=== PATIENT | male | born 1935 | race Caucasian/White ===

== ENCOUNTER 2019-05-10 13:30 | Observation (INO) | payer MEDICARE, BC ==
--- NOTE | 2019-05-10 15:11 | EDM.PDOC ---
ED HPI GENERAL MEDICAL PROBLEM - General Chief Complaint: Cardiovascular Problem Stated Complaint: LIGHTHEADED, A-FIB Time Seen by Provider: 05/10/19 13:40 Source of Information: Reports: Patient History Limitations: Reports: No Limitations - History of Present Illness INITIAL COMMENTS - FREE TEXT/NARRATIVE: Patient presented to the ED because of a near syncopal episode. He was doing some work at home when all of a sudden he felt weak, dizzy and almost passed out. He denies having any chest pain,palpitations, N/V or dyspnea. - Related Data Allergies Allergy/AdvReac Type Severity Reaction Status Date / Time No Known Allergies Allergy Verified 05/10/19 14:17 Home Meds: Home Meds Ferrous Sulfate 324 mg PO DAILY 05/10/19 [History] Losartan/Hydrochlorothiazide [Losartan-HCTZ 50-12.5 MG] 0.5 tab PO BEDTIME 05/10 [History] Metoprolol Succinate 25 mg PO DAILY 05/10/19 [History] Simvastatin 40 mg PO BEDTIME 05/10/19 [History] Past Medical History HEENT History: Reports: Impaired Vision Cardiovascular History: Reports: Bypass, High Cholesterol, Hypertension, Other ( See Below) Other Cardiovascular History: new onset AFIB this admission 05-10-19. Hx of Triple bypass. Prolific family hx of cardiac related illness/deaths. - Past Surgical History HEENT Surgical History: Reports: KWAME GI Surgical History: Reports: Other (See Below) Other GI Surgeries/Procedures: hernia repair Social & Family History - Family History Cardiac: Reports: [place] - Tobacco Use Smoking Status *Q: Never Smoker - Caffeine Use Caffeine Use: Reports: Coffee - Recreational Drug Use Recreational Drug Use: No ED ROS GENERAL - Review of Systems Review Of Systems: See Below Constitutional: Reports: No Symptoms HEENT: Reports: No Symptoms Respiratory: Reports: No Symptoms Cardiovascular: Reports: Lightheadedness. Denies: Chest Pain Endocrine: Reports: No Symptoms GI/Abdominal: Reports: No Symptoms : Reports: No Symptoms Musculoskeletal: Reports: No Symptoms Skin: Reports: No Symptoms Neurological: Reports: No Symptoms Psychiatric: Reports: No Symptoms ED EXAM, GENERAL - Physical Exam Exam: See Below Exam Limited By: No Limitations General Appearance: Alert, WD/WN, No Apparent Distress Eye Exam: Bilateral Eye: PERRL Nose: Normal Inspection, Normal Mucosa, No Blood Throat/Mouth: Normal Inspection, Normal Lips, Normal Teeth Head: Atraumatic, Normocephalic Neck: Normal Inspection, Supple, Non-Tender, Full Range of Motion Respiratory/Chest: No Respiratory Distress, Lungs Clear, Normal Breath Sounds Cardiovascular: Normal Peripheral Pulses, Regular Rate, Rhythm, No Edema, No Gallop, No JVD, No Murmur GI/Abdominal: Normal Bowel Sounds, Soft, Non-Tender, No Organomegaly, No Distention (Male) Exam: No Hernia, Normal Inspection, Normal Prostate Rectal (Males) Exam: Normal Exam Back Exam: Normal Inspection, Full Range of Motion Extremities: Normal Inspection, Normal Range of Motion Neurological: Alert, Oriented, CN II-XII Intact, Normal Cognition, Normal Gait Psychiatric: Normal Affect Course - Vital Signs Text/Narrative:: Labs and EKG reviewed with patient and verbalized understanding EKG-AFIB with normal VR CREA-2.0 NS @125 ml/hr Last Recorded V/S: Last Vital Signs Temp 37.1 C 05/10/19 13:30 Pulse 75 05/10/19 13:30 Resp 14 05/10/19 13:30 BP 119/69 05/10/19 13:30 Pulse Ox 100 05/10/19 13:30 - Orders/Labs/Meds Orders: Active Orders 24 hr Category Date Time Status Sodium Chloride 0.9% [Normal Saline] 1,000 ml Med 05/10/19 15:00 Active IV ASDIRECTED Medication Orders Sodium Chloride (Normal Saline) 1,000 mls @ 125 mls/hr IV ASDIRECTED MANAS Labs: Laboratory Tests 05/10/19 05/10/19 05/10/19 Range/Units 14:05 14:05 14:05 WBC 7.2 (4.5-12.0) X10-3/uL RBC 4.50 (4.30-5.75) x10(6)uL Hgb 12.7 L (13.5-17.8) g/dL Hct 38.9 (30.0-51.3) % MCV 86.6 (80-96) fL MCH 28.3 (27.7-33.6) pg MCHC 32.7 (32.2-35.4) g/dL RDW 13.9 (11.5-15.5) % Plt Count 300 (125-369) X10(3)uL MPV 7.6 (7.4-10.4) fL Neutrophils % (Manual) 76 (46-82) % Lymphocytes % (Manual) 14 (13-37) % Monocytes % (Manual) 7 (4-12) % Eosinophils % (Manual) 3 (0-5) % PT (8.7-11.1) INR (0.89-1.13) APTT (24.4-33.2) SECONDS Sodium 140 (135-145) mmol/L Potassium 4.0 (3.5-5.3) mmol/L Chloride 103 (100-110) mmol/L Carbon Dioxide 24 (21-32) mmol/L BUN 38 H (7-18) mg/dL Creatinine 2.0 H* (0.70-1.30) mg/dL Est Cr Clr Drug Dosing 29.91 mL/min Estimated GFR (MDRD) 32 L (>60) BUN/Creatinine Ratio 19.0 (9-20) Glucose 116 (80-116) mg/dL Calcium 9.7 (8.6-10.2) mg/dL Total Bilirubin 0.7 (0.1-1.3) mg/dL AST 20 (5-25) IU/L ALT 22 (12-36) U/L Alkaline Phosphatase 74 (56-112) IU/L Troponin I < 0.017 L (<0.017-0.056) ng/mL Total Protein 7.4 (6.0-8.0) g/dL Albumin 3.9 (3.2-4.6) g/dL Globulin 3.5 g/dL Albumin/Globulin Ratio 1.1 05/10/19 Range/Units 14:05 WBC (4.5-12.0) X10-3/uL RBC (4.30-5.75) x10(6)uL Hgb (13.5-17.8) g/dL Hct (30.0-51.3) % MCV (80-96) fL MCH (27.7-33.6) pg MCHC (32.2-35.4) g/dL RDW (11.5-15.5) % Plt Count (125-369) X10(3)uL MPV (7.4-10.4) fL Neutrophils % (Manual) (46-82) % Lymphocytes % (Manual) (13-37) % Monocytes % (Manual) (4-12) % Eosinophils % (Manual) (0-5) % PT 10.1 (8.7-11.1) INR 1.04 (0.89-1.13) APTT 23.9 L (24.4-33.2) SECONDS Sodium (135-145) mmol/L Potassium (3.5-5.3) mmol/L Chloride (100-110) mmol/L Carbon Dioxide (21-32) mmol/L BUN (7-18) mg/dL Creatinine (0.70-1.30) mg/dL Est Cr Clr Drug Dosing mL/min Estimated GFR (MDRD) (>60) BUN/Creatinine Ratio (9-20) Glucose (80-116) mg/dL Calcium (8.6-10.2) mg/dL Total Bilirubin (0.1-1.3) mg/dL AST (5-25) IU/L ALT (12-36) U/L Alkaline Phosphatase (56-112) IU/L Troponin I (<0.017-0.056) ng/mL Total Protein (6.0-8.0) g/dL Albumin (3.2-4.6) g/dL Globulin g/dL Albumin/Globulin Ratio Meds: Medications Generic Name Dose Route Start Last Admin Trade Name Freq PRN Reason Stop Dose Admin Sodium Chloride 1,000 mls @ 125 mls/hr 05/10/19 15:00 Normal Saline IV ASDIRECTED MANAS Departure - Departure Time of Disposition: 15:10 Disposition: Refer to Observation Condition: Good Clinical Impression: Near syncope, Atrial fibrillation, WILFREDO (acute kidney injury) Referrals: Blas Kwan MD [Primary Care Provider] - Forms: ED Department Discharge Sepsis Event Note - Evaluation Sepsis Screening Result: No Definite Risk - Focused Exam Vital Signs: Vital Signs Temp Pulse Resp BP Pulse Ox 05/10/19 13:30 37.1 C 75 14 119/69 100 Date Exam was Performed: 05/10/19 Time Exam was Performed: : - My Orders Last 24 Hours: My Active Orders 05/10/19 15:00 Sodium Chloride 0.9% [Normal Saline] 1,000 ml IV ASDIRECTED - Assessment/Plan Last 24 Hours: My Active Orders 12/27/19 15:00 Sodium Chloride 0.9% [Normal Saline] 1,000 ml IV ASDIRECTED
[2019-05-10] MEDS ORDERED: Ondansetron 4 MG/2 ML SDV IV PRN (15:33)
[2019-05-10] MEDS ORDERED: Acetaminophen 325 MG Tab PO PRN (15:33)
[2019-05-10] MEDS ORDERED: Docusate Sodium 100 MG Cap PO PRN (15:33)
[2019-05-10] MEDS ORDERED: Zolpidem 5 MG Tab PO PRN (15:33)
[2019-05-10] MEDS: Sodium Chloride 0.9% 1,000 ML IV SCH (15:46)
[2019-05-10] MEDS ORDERED: Enoxaparin 30 MG/0.3 ML Syringe SUBCUT SCH (17:00)
[2019-05-10] MEDS ORDERED: Warfarin 5 MG Tab PO SCH (18:15)
[2019-05-10] MEDS ORDERED: Simvastatin 40 MG Tab *PTOM PO SCH (21:00)
[2019-05-11] MEDS: Sodium Chloride 0.9% 1,000 ML IV SCH ×2 (00:34→07:36)
[2019-05-11] MEDS ORDERED: METOPROLOL SUCCINATE 25 MG PO SCH (09:00)
[2019-05-11] MEDS ORDERED: Ferrous Sulfate 325 MG Tab *PTOM PO SCH (09:00)
--- NOTE | 2019-05-11 15:05 | HP ---
ADMISSION DATE: 05/10/2019 REASON FOR VISIT: Acute onset of feeling poorly, lightheaded and near-syncope. 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 Was seen and evaluated at [facility] ER. He had been doing some busy work at his apartment, fixing a door. Had gone down to a local hardware store to get special tool. While there, he had a sudden onset of weakness, dizziness, lightheadedness, and near-syncope. He was brought to [facility] ER. While in the ER, laboratory studies were performed, vital signs were stable, pulse was not rapid. CBC was unremarkable, electrolytes satisfactory, though creatinine of 2.0, INR 2.0, GFR of 32, troponin of less than 0.017, and was found to be in atrial fibrillation, rate controlled. Onset uncertain. Because of concerns of well-being, admission to hospital is indicated. IV fluids and addressing the issue of Coumadin. CURRENT MEDICATIONS: Present daily medications include, 1. Losartan/hydrochlorothiazide 50/12.5, one-half pill daily for blood pressure. 2. Metoprolol-XL 25 mg one p.o. daily for heart rate control and blood pressure. 3. Zocor 40 mg one p.o. daily for hyperlipidemia. 4. Flomax 0.4 mg one p.o. daily for BPH. 5. 325 mg of baby aspirin. 6. Krill oil 1000 mg daily for nutrition. 7. Multivitamin, senior vitamin. ALLERGIES: None. PAST SURGICAL HISTORY: Significant for remote herniorrhaphy, previous LASIK eye surgery, and coronary artery bypass surgery x4. PAST MEDICAL HISTORY: Medical problems include hyperlipidemia, coronary artery disease, essential hypertension, and hyperlipidemia. 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 Previously and , children and grandchildren. Former smoker, quit 1960. No chewing tobacco. No vaping. No illicit drug use. No alcohol use. FAMILY HISTORY: Noncontributory. REVIEW OF SYSTEMS: CONSTITUTIONAL: Please see HPI. EYES: Sees well. EARS: Hears well. OROPHARYNX: Intact dentition. GI: Bowels have been fine. No blood in stools. : Voiding pattern, no blood in urine. SKIN: No open sores or lesions. ENDOCRINE: No excessive thirst or urination. ALLERGIES: None. ORTHOPEDIC: Generalized joint complaints. PHYSICAL EXAMINATION: VITAL SIGNS: 36.9, 88, 114/74, 14, and 97% O2. GENERAL: Elderly gentleman, cooperative, conversant, and appears of stated age. HEENT: Funduscopic benign. Conjunctivae clear. Bright tympanic membranes. Clear nasal discharge. Mouth and oropharynx clear. Tongue midline. Good gag reflex. NECK: Benign. CHEST: On auscultation, clear in all lung morris. HEART: On auscultation, no ectopy or murmur. ABDOMEN: Benign. No hepatosplenomegaly. Sternotomy scar well healed. /RECTAL: Declined. EXTREMITIES: Well perfused. NEUROMUSCULAR: Intact. LABORATORY STUDIES: As above. IMPRESSION: New-onset atrial fibrillation, uncertain, not suspicious that was today. SECONDARY DIAGNOSES: Coronary artery disease, hypertension, hyperlipidemia, and stage 3 chronic renal failure. PLAN: IV fluids, hydration, medications and care. Beginning of Coumadin timely and appropriate. /[id number] JOHN/JAYCOB
--- NOTE | 2019-05-13 09:59 | DISCH ---
DISCHARGE DATE: 05/11/2019 DIAGNOSIS: New diagnosis of symptomatic atrial fibrillation. SECONDARY DIAGNOSES: 1. Coronary artery disease, coronary artery bypass surgery. 2. Hypertension. 3. Hyperlipidemia. 4. Stage 3 chronic renal failure. 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 Exam was satisfactory, he was found to be in atrial fibrillation, rate controlled. Onset is uncertain. Not likely today. Examination was performed and satisfactory, no complicating issues. HOSPITAL COURSE: The patient was given IV fluids, spoke to have implications and expectations and intervention of Coumadin and need for prevention of embolic CVA. Was given 5 mg of Coumadin on the evening of 05/10/19. He had an overnight stay without conflict. On the morning of 05/11/19, INR had risen to 2.4. Dramatic increase with 5 mg of Coumadin. No complicating issues. Vital signs have been stable. Heart rate was in the 50s at rest, 70s with wakefulness, up to 120s. Metoprolol 25 mg on board in the interim. Due to the rapid rise in INR ProTime, we will divert to 1 mg of Coumadin in the mean time. OBJECTIVE: VITAL SIGNS: Stable. HEENT: Unremarkable. NECK: Supple. Thyroid small. CHEST: Clear in all lung morris. HEART: Irregularly irregular at 74. ABDOMEN: Benign. PLAN: Discharge home. Coumadin 2 mg tablet only available at the pharmacy, we will do half of the 2 mg to 1 mg daily. Mandatory recheck on 05/13/2019 at the [facility]. Clearly latter was defined and written as an opportunity. Laboratory studies and findings will be forwarded accordingly. ADDENDUM: A 30-minute visit with planning and discharge. /[id number] JOHN/JAYCOB
== END 2019-05-11 10:40 | disposition home or self-care (01) ==
LOC: FB.ED 13:30 → FB.MS 15:33
PROVIDERS: ADMIT Family Medicine; ATTEND Family Medicine
DX: I48.91 Unspecified atrial fibrillation (principal); I25.10 Atherosclerotic heart disease of native coronary artery without angina pectoris; I10 Essential (primary) hypertension; E78.5 Hyperlipidemia, unspecified; I12.9 Hypertensive chronic kidney disease with stage 1 through stage 4 chronic kidney disease, or unspecified chronic kidney disease; N18.3 Chronic kidney disease, stage 3 (moderate); Z95.1 Presence of aortocoronary bypass graft; Z79.899 Other long term (current) drug therapy; Z87.891 Personal history of nicotine dependence
CPT/HCPCS: 36415; 80048; 80053; 84484; 85025; 85610; 85730; 93005; 93010; 99284; A9270; J1650; J7030

== ENCOUNTER 2019-12-11 15:25 | Emergency (ER) | payer MEDICARE, BC ==
[2019-12-11] MEDS ORDERED: Lidocaine 2% Viscous Solution 15 ML Cup TOP STA (16:04)
--- NOTE | 2019-12-11 16:45 | EDM.PDOC ---
ED HPI GENERAL MEDICAL PROBLEM - General Chief Complaint: Laceration Stated Complaint: CUT RIGHT HAND Time Seen by Provider: 12/11/19 15:40 Source of Information: Reports: Patient History Limitations: Reports: No Limitations - History of Present Illness INITIAL COMMENTS - FREE TEXT/NARRATIVE: Patient presented to the ED because of a right hand injury. He tripped and fell and landed his right hand on the concrete. He sustained an irregular 8 cm laceration over the palm of his right hand. He is able to extend his wrist and fingers without any difficulty. He denies hitting his head or neck and there is no headache N/V. - Related Data Allergies Allergy/AdvReac Type Severity Reaction Status Date / Time No Known Allergies Allergy Verified 12/11/19 16:02 Home Meds: Home Meds Aspirin [Halfprin] 81 mg PO DAILY 05/10/19 [History] Ferrous Sulfate 324 mg PO DAILY 05/10/19 [History] Losartan/Hydrochlorothiazide [Losartan-HCTZ 50-12.5 MG] 0.5 tab PO BEDTIME 05/10/19 [History] Metoprolol Succinate 25 mg PO DAILY 05/10/19 [History] Simvastatin 40 mg PO BEDTIME 05/10/19 [History] Tamsulosin [Flomax] 0.4 mg PO BEDTIME 05/10/19 [History] Indomethacin [Indocin] 50 mg PO BID 12/11/19 [History] Krill/Om-3/DHA/EPA/Phospho/Ast [Krill Oil 1,000 mg Softgel] 1 each PO DAILY 12/11/19 [History] Multivitamin with Minerals [Multiple Vitamin] 1 tab PO DAILY 12/11/19 [History] Warfarin Sodium [Jantoven] 2 mg PO DAILY 12/11/19 [History] cephALEXin [Keflex] 500 mg PO Q8H #30 cap 12/11/19 [Rx] Past Medical History HEENT History: Reports: Impaired Vision Cardiovascular History: Reports: Bypass, High Cholesterol, Hypertension, Other (See Below) Other Cardiovascular History: new onset AFIB this admission 05-10-19. Hx of Triple bypass. Prolific family hx of cardiac related illness/deaths. Respiratory History: Reports: None Gastrointestinal History: Reports: None Genitourinary History: Reports: None Musculoskeletal History: Reports: None Neurological History: Reports: None Psychiatric History: Reports: None Endocrine/Metabolic History: Reports: None Hematologic History: Reports: None Immunologic History: Reports: None Oncologic (Cancer) History: Reports: None Dermatologic History: Reports: None - Infectious Disease History Infectious Disease History: Reports: None - Past Surgical History Head Surgeries/Procedures: Reports: None HEENT Surgical History: Reports: LASIK Cardiovascular Surgical History: Reports: Coronary Artery Bypass GI Surgical History: Reports: Hernia, Inguinal, Other (See Below) Other GI Surgeries/Procedures: hernia repair Endocrine Surgical History: Reports: None Social & Family History - Family History Family Medical History: Noncontributory Cardiac: Reports: [place] - Tobacco Use Smoking Status *Q: Never Smoker Second Hand Smoke Exposure: No - Caffeine Use Caffeine Use: Reports: None - Recreational Drug Use Recreational Drug Use: No ED ROS GENERAL - Review of Systems Review Of Systems: See Below Constitutional: Reports: No Symptoms HEENT: Reports: No Symptoms Respiratory: Reports: No Symptoms Cardiovascular: Reports: No Symptoms, Palpitations GI/Abdominal: Reports: No Symptoms : Reports: No Symptoms Musculoskeletal: Reports: No Symptoms Skin: Reports: Wound ED EXAM, SKIN/RASH Exam: See Below Exam Limited By: No Limitations General Appearance: Alert, No Apparent Distress Eye Exam: Bilateral Eye: PERRL Ears: Normal External Exam, Normal Canal Nose: Normal Inspection, Normal Mucosa Throat/Mouth: Normal Inspection, Normal Lips Head: Atraumatic, Normocephalic Neck: Normal Inspection, Supple, Non-Tender Respiratory/Chest: No Respiratory Distress, Lungs Clear, Normal Breath Sounds Cardiovascular: Normal Peripheral Pulses, Regular Rate, Rhythm, No Edema, No JVD, No Murmur GI/Abdominal: Normal Bowel Sounds, Soft, Non-Tender, No Organomegaly Back Exam: Normal Inspection, Full Range of Motion Extremities: Normal Inspection, Normal Range of Motion Neurological: Alert, Oriented, CN II-XII Intact Psychiatric: Normal Affect, Normal Mood Skin: Warm, Dry, Intact Location, Skin: Upper Extremity, Right ED SKIN PROCEDURES - Laceration/Wound Repair Right Hand Appearance: Superficial, Clean Distal NVT: Neuro & Vascular Intact Anesthetic Type: Local Local Anesthesia - Lidocaine (Xylocaine): 1% Plain Local Anesthetic Volume: 4cc Skin Prep: Chlorhexidine (Hibiciens), Saline Exploration/Debridement/Repair: Wound Explored Closed with: Sutures Lac/Wound length In cm: 8 Suture Size: 3-0 Suture Type: Silk Course - Vital Signs Text/Narrative:: see procedure Xray Rt hand-pending UTD with immunization Last Recorded V/S: Last Vital Signs Temp 36.8 C 12/11/19 15:35 Pulse 64 12/11/19 15:35 Resp 16 12/11/19 15:35 BP 150/74 H 12/11/19 15:35 Pulse Ox 100 12/11/19 15:35 - Orders/Labs/Meds Orders: Active Orders 24 hr Category Date Time Status Hand Comp Min 3V Rt [CR] Stat Exams 12/11/19 16:04 Taken Meds: Medications Discontinued Medications Generic Name Dose Route Start Last Admin Trade Name Pankaj PRN Reason Stop Dose Admin Lidocaine HCl 15 ml 12/11/19 16:04 12/11/19 16:12 Xylocaine 2% Viscous TOP 12/11/19 16:05 15 ml NOW STA Administration Departure - Departure Time of Disposition: 17:40 Disposition: Home, Self-Care 01 Condition: Good Clinical Impression: Laceration - Discharge Information Prescriptions: cephALEXin [Keflex] 500 mg PO Q8H #30 cap Instructions: Laceration Care, Adult Referrals: Blas Kwan MD [Primary Care Provider] - Forms: ED Department Discharge Additional Instructions: Please read discharge instructions on lacerationRemoval of suture in 10 days Keflex 500 mg 3 times daily for 10 days Take tylenol 1000 mg every 8 hours as needed for pain Sepsis Event Note (ED) - Evaluation Sepsis Screening Result: No Definite Risk - Focused Exam Vital Signs: Vital Signs Temp Pulse Resp BP Pulse Ox 12/11/19 15:35 36.8 C 64 16 150/74 H 100 - My Orders Last 24 Hours: My Active Orders 12/11/19 16:04 Hand Comp Min 3V Rt [CR] Stat - Assessment/Plan Last 24 Hours: My Active Orders 12/11/19 16:04 Hand Comp Min 3V Rt [CR] Stat
--- NOTE | 2019-12-11 18:09 | CR ---
INDICATION: Fell with right hand injury, laceration palm of hand in 5th metatarsal area. RIGHT HAND: Three views of the right hand were obtained 12/11/19 - no comparison. An acute fracture or dislocation was not identified. Moderately severe osteoarthritic changes were noted at the 1st metacarpocarpal joint most likely due to posttraumatic osteoarthritis with some deformity of the 1st metacarpal noted. Mild degenerative hypertrophic changes are noted at the interphalangeal joints distally at the 2nd through 5th fingers. Clips are noted at the distal radius compatible with previous surgery. IMPRESSION: 1. No acute fracture or dislocation. 2. 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 MTDD
== END 2019-12-11 17:30 | disposition home or self-care (01) ==
LOC: FB.ED 15:25
DX: S61.411A Laceration without foreign body of right hand, initial encounter (principal); I48.91 Unspecified atrial fibrillation; Z79.01 Long term (current) use of anticoagulants; Z79.82 Long term (current) use of aspirin; Z79.899 Other long term (current) drug therapy; W01.0XXA Fall on same level from slipping, tripping and stumbling without subsequent striking against object, initial encounter
CPT/HCPCS: 12004; 73130-RT; 99283-25; A9270-GY; J2001

== ENCOUNTER 2023-05-01 15:10 | Emergency (ER) | payer MEDICARE, BC ==
[2023-05-01] MEDS ORDERED: Ondansetron 4 MG/2 ML SDV IVPUSH ONE (15:42)
[2023-05-01] MEDS ORDERED: Sodium Chloride 0.9% 10 ML Syringe FLUSH PRN (15:44)
[2023-05-01] MEDS ORDERED: Sodium Chloride 0.9% 1,000 ML IV SCH (15:45)
[2023-05-01] MEDS ORDERED: Atropine/Diphenoxylate 0.025-2.5 MG Tab PO ONE (15:53)
[2023-05-01 15:57] LABS: BASOPHILS PERCENT AUTO 0.6 % (0.3-3.8); EOSINOPHILS ABSOLUTE AUTO 0.1 x10-3/uL (0.0-0.6); EOSINOPHILS PERCENT AUTO 1.1 % (0.1-6.8); HEMATOCRIT 36.3 % (38.3-50.1); HEMOGLOBIN 12.1 g/dL (12.9-17.7); LYMPHOCYTES ABSOLUTE AUTO 0.6 x10-3/uL (0.5-4.5); MEAN CORPUSCULAR HGB CONC 33.4 g/dL (28.7-35.3); MEAN CORPUSCULAR VOLUME 89.7 fL (80.8-98.7); MEAN PLATELET VOLUME 7.8 fL (6.7-11.0); MONOCYTES ABSOLUTE AUTO 0.7 x10-3/uL (0.0-1.2); MONOCYTES PERCENT AUTO 14.7 % (5.5-15.2); NEUTROPHILS ABSOLUTE AUTO 3.3 x10-3/uL (1.7-6.9); NEUTROPHILS PERCENT AUTO 70.6 % (40.3-71.8); PLATELET COUNT,PLT 217 x10(3)uL (117-477); RED BLOOD CELL COUNT 4.05 x10(6)uL (3.90-5.90); RED CELL DISTRIBUTION WIDTH 16.7 % (12.4-15.0); WHITE BLOOD CELL COUNT,WBC 4.7 x10-3/uL (3.2-10.1)
[2023-05-01 16:01] LABS: BLOOD UREA NITROGEN,BUN 38 mg/dL (7-18); BUN/CREATININE RATIO 18.1 (9-20); CALCIUM 9.1 mg/dL (8.6-10.2); CARBON DIOXIDE,CO2 27 mmol/L (21-32); CHLORIDE,CL 101 mmol/L (100-110); ESTIMATED GFR 30 mL/min (>60); GLUCOSE RANDOM 116 mg/dL (80-116); POTASSIUM,K 3.6 mmol/L (3.5-5.3); SODIUM,NA 136 mmol/L (135-145)
[2023-05-01 16:08] LABS: CREATININE 2.1 mg/dL (0.70-1.30)
== END 2023-05-01 16:57 | disposition home or self-care (01) ==
LOC: FB.ED 15:10
DX: I48.91 Unspecified atrial fibrillation (principal); I10 Essential (primary) hypertension; E78.00 Pure hypercholesterolemia, unspecified; Z95.1 Presence of aortocoronary bypass graft; Z79.899 Other long term (current) drug therapy; Z79.82 Long term (current) use of aspirin
CPT/HCPCS: 36415; 80048; 85025; 96361; 96374; 99284; A9270; J2405; J3490; J7030

== ENCOUNTER 2023-11-30 12:54 | Emergency (ER) | payer MEDICARE, BC ==
[2023-11-30] MEDS ORDERED: Sodium Chloride 0.9% 10 ML Syringe FLUSH PRN ×2 (12:58)
[2023-11-30 13:06] LABS: BASE EXCESS VENOUS,POC -9 mmol/L (-2 - 3+); PCO2 VENOUS,POC 42 mmHg (41-51); PH VENOUS,POC 7.23 pH Units (7.32-7.43)
[2023-11-30 13:08] LABS: BASOPHILS ABSOLUTE AUTO 0.1 x10-3/uL (0.0-0.3); BASOPHILS PERCENT AUTO 1.2 % (0.3-3.8); EOSINOPHILS ABSOLUTE AUTO 0.5 x10-3/uL (0.0-0.6); EOSINOPHILS PERCENT AUTO 4.3 % (0.1-6.8); HEMATOCRIT 33.7 % (38.3-50.1); HEMOGLOBIN 10.9 g/dL (12.9-17.7); LYMPHOCYTES ABSOLUTE AUTO 3.5 x10-3/uL (0.5-4.5); LYMPHOCYTES PERCENT AUTO 32.6 % (15.8-45.3); MEAN CORPUSCULAR HEMOGLOBIN 30.3 pg (27.0-33.3); MEAN CORPUSCULAR HGB CONC 32.4 g/dL (28.7-35.3); MEAN CORPUSCULAR VOLUME 93.3 fL (80.8-98.7); MONOCYTES ABSOLUTE AUTO 0.4 x10-3/uL (0.0-1.2); MONOCYTES PERCENT AUTO 3.8 % (5.5-15.2); NEUTROPHILS ABSOLUTE AUTO 6.3 x10-3/uL (1.7-6.9); NEUTROPHILS PERCENT AUTO 58.1 % (40.3-71.8); PLATELET COUNT,PLT 240 x10(3)uL (117-477); RED BLOOD CELL COUNT 3.61 x10(6)uL (3.90-5.90); RED CELL DISTRIBUTION WIDTH 16.8 % (12.4-15.0); WHITE BLOOD CELL COUNT,WBC 10.8 x10-3/uL (3.2-10.1)
[2023-11-30 13:17] LABS: A/G RATIO 1.1; ALANINE AMINOTRANSFERASE,ALT 112 U/L (12-36); ALBUMIN 3.1 g/dL (3.2-4.6); ALKALINE PHOSPHATASE 66 IU/L (56-112); ASPARTATE AMNIOTRANSFERASE,AST 118 IU/L (5-25); BILIRUBIN TOTAL 0.6 mg/dL (0.1-1.3); BLOOD UREA NITROGEN,BUN 34 mg/dL (7-18); BUN/CREATININE RATIO 15.5 (9-20); CARBON DIOXIDE,CO2 21 mmol/L (21-32); CHLORIDE,CL 106 mmol/L (100-110); ESTIMATED GFR 29 mL/min (>60); GLUCOSE RANDOM 226 mg/dL (80-116); INR 1.1 (1.00-1.24); MAGNESIUM 1.9 mg/dL (1.8-2.5); POTASSIUM,K 3.5 mmol/L (3.5-5.3); PROTHROMBIN TIME 11.3 sec (9.0-11.1); SODIUM,NA 143 mmol/L (135-145)
[2023-11-30 13:19] LABS: PTT,PARTIAL THROMBOPLSTIN TIME 24.7 SECONDS (24.4-33.2)
[2023-11-30 13:24] LABS: TROPONIN I 56.2 pg/mL (4.0-60.3)
[2023-11-30 13:25] LABS: CREATININE 2.2 mg/dL (0.70-1.30)
[2023-11-30 13:30] LABS: BILIRUBIN,URINE NEGATIVE (NEGATIVE); GLUCOSE,URINE NORMAL (NORMAL); KETONES,URINE NEGATIVE (NEGATIVE); LEUKOCYTE ESTERASE,URINE NEGATIVE (NEGATIVE); NITRITE,URINE NEGATIVE (NEGATIVE); OCCULT BLOOD,URINE LARGE (NEGATIVE); PROTEIN,URINE 100 mg/dL (NEGATIVE); UROBILINOGEN,URINE NORMAL (NEGATIVE)
[2023-11-30] MEDS ORDERED: Norepinephrine 4 MG in Dextrose 5% in Water 246 ML IV SCH (13:30)
[2023-11-30 13:35] LABS: APPEARANCE,URINE CLOUDY (CLEAR); BACTERIA,URINE FEW (NS); COLOR,URINE YELLOW (YELLOW); MUCUS,URINE MODERATE (NS); RBC,URINE >100 (0-5); SQUAMOUS EPITHELIAL CELLS,UR FEW (NS,R,O); WBC,URINE 0-5 (0-5)
[2023-11-30] MEDS ORDERED: Norepinephrine Bit/D5W Premix 4 MG in Premix Bag 1 BAG IV SCH (13:45)
== END 2023-11-30 13:45 ==
LOC: FB.ED 12:54
DX: I21.09 ST elevation (STEMI) myocardial infarction involving other coronary artery of anterior wall (principal); I48.91 Unspecified atrial fibrillation; I25.10 Atherosclerotic heart disease of native coronary artery without angina pectoris; I10 Essential (primary) hypertension; E78.00 Pure hypercholesterolemia, unspecified; Z79.899 Other long term (current) drug therapy; Z79.84 Long term (current) use of oral hypoglycemic drugs
CPT/HCPCS: 31500; 36415; 51702; 71045; 80053; 81001; 82947; 83735; 83880; 84484; 85025; 85610; 85730; 93005; 93010; 96365; 96368; 99285; 99291-25